=== PATIENT | male | born 1970 | race Caucasian/White ===

== ENCOUNTER 2025-04-28 02:56 | Day surgery (SDC) | payer BC, SELFPAY ==
--- OUTSIDE RECORDS SUMMARY | 2025-04-28 02:59 | XMS_ITS | Encounter Summary ---
Author Organization [facility] Address [address] [place] [address] Care Team Providers Care Lugger Name Role Phone Unavailable Primary Care Provider Unavailabl e Encounter Details Date Type Department Care Team (Late st Contact Info) Description 05/22/2006 Outpatient Historical [facility] Internal Medicine [facility] [address] [place] [address] [address] [place] [address] [place] [address] 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
--- OUTSIDE RECORDS SUMMARY | 2025-04-28 02:59 | XMS_ITS | Data Portability ---
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 Name Role Phone EB YEUNG Primary Care Provider EB YEUNG Referring Provider [phone] Assessment Encounter Date Assessment Date Assessment LastModified by Organization Details LastModified Time 08/08/2022 08/08/2022 Continue with meds increase losartan to 75 mg daily Not available 08/24/2022 17:41:11 12/17/2022 12/17/2022 Continue current therapy follow-up in 4 months [email or web address] Not available 12/17/2022 21:54:56 03/10/2023 03/10/2023 Continue current therapy diagnosis have been discussed follow-up with me in 6 months [email or web address] Not available 03/22/2023 17:39:07 Plan of Treatment Reminders Order Date Submit Date Provider Last Modified By Organization Details Last Modified Time Details Appointments None recorded. Lab uric acid, serum or plasma 2022 023 [facility] (Lab), [address] [place], [address], 19:24:21 [facility], [facility] or [facility] [address] [place], [address], 09:07:51 lipid panel, serum 2022 023 [facility] (Lab), [address] [place], [address], 3 19:24:16 CMP, serum or plasma 2022 023 [facility] (Lab), [address] [place], [address], 3 19:24:27 CBC w/ auto diff 2022 023 [facility] (Lab), [address] [place], [address], 3 18:14:59 Referral None recorded. Procedures None recorded. Surgeries None recorded. Imaging None recorded. Medication Orders losartan 25 mg tablet 2022 023 [email or web address] Not available 3 16:52:30 losartan 50 mg tablet 2022 023 [email or web address] Not available 3 17:16:25 atorvastati n 20 mg tablet 2022 023 [email or web address] Not available 3 12:07:13 allopurinol 300 mg tablet 2022 023 [email or web address] Not available 3 17:16:25 amlodipine 5 mg tablet 2022 023 [email or web address] Not available 3 17:16:25 losartan 25 mg tablet 2022 023 [email or web address] [id number], [address], [place], [place], [id number], 3 14:16:18 losartan 50 mg tablet 2022 023 [email or web address] [id number], [address], [place], [place], [id number], 3 14:16:18 Patient TargetsNo targets recorded. Patient InstructionsNo instructions recorded. Reason for Referral None Reported. Results Created Date Observation Date Name Description Value Unit Range Abnormal Flag Note LastModifiedBy Organization Detail LastModifiedTime 05/12/20 22 05/12/2022 SARS- COV-2 RNA(C OVID1 9),RT -PCR sars-cov-2 RNA(covid19) ,RT-PCR negati ve This test has been autho rized by the FDA under an Emerg ency Use Autho rizat ion (EUA) for use by autho rized labor atori es. Negat saúl resul ts do not precl ude SARS- CoV-2 and shoul d not be used as the sole basis for treat ment or other patie nt manag ement decis ions. Test resul ts shoul d be corre lated with the clini abdirashid histo ry, epide miolo gical data, and other data avail able to the clini aminah evalu ating the patie nt. [place] w the Fact Sheet s for healt h care provi ders and patie nts at the [facility] william: https ://ww [employer].fda .gov/ media /1363 12/do wnloa d https ://ww w.fda .gov/ media /1363 13/do wnloa d https ://[employer].fda .gov/ media /1421 92/do wnloa d https ://[employer].fda .gov/ media /1421 91/do wnloa d Metho dolog y: Real- Time RT-PC R Not Available [facility] (Lab) [address] [place], [address], 05/12/2022 13:32:11 05/14/20 22 05/14/2022 BASIC METAB OLIC PANEL sodium 139 mmol/ L 137-14 5 Not Available [facility] (Lab) [address] [place], [address], 05/14/2022 07:47:38 05/14/20 22 05/14/2022 BASIC METAB OLIC PANEL potassium 3.8 mmol/ L 3.5-5. 1 Not Available [facility] (Lab) [address] [place], [address], 05/14/2022 07:47:38 05/14/20 22 05/14/2022 BASIC METAB OLIC PANEL chloride 104 mmol/ L 98-107 Not Available [facility] (Lab) [address] [place], [address], 05/14/2022 07:47:38 05/14/20 22 05/14/2022 BASIC METAB OLIC PANEL carbon dioxide 27 mmol/ L 22-30 Not Available [facility] (Lab) [address] [place], [address], 05/14/2022 07:47:38 05/14/20 22 05/14/2022 BASIC METAB OLIC PANEL anion gap 11.8 mmol/ L 14-22 low Not Available [facility] (Lab) [address] [place] [address] [place], [address], 05/14/2022 07:47:38 05/14/20 22 05/14/2022 BASIC METAB OLIC PANEL glucose 96 mg/dL 70-99 Not Available [facility] (Lab) [address] [place], [address], 05/14/2022 07:47:38 05/14/20 22 05/14/2022 BASIC METAB OLIC PANEL BUN 18 mg/dL 8-19 Not Available [facility] (Lab) [address] [place] [address] [place], [address], 05/14/2022 07:47:38 05/14/20 22 05/14/2022 BASIC METAB OLIC PANEL creatinine 0.99 mg/dL 0.66-1 .25 Not Available [facility] (Lab) [address] [place] [address] [place], [address], 05/14/2022 07:47:38 05/14/20 22 05/14/2022 BASIC METAB OLIC PANEL GFR >60 Refer ence Range : [place] ge GFR Healt hy Adult : >60 mL/mi n/1.7 3 m2 Chron ic Kidne y Disea se: 15-60 mL/mi n/1.7 3 m2 Avril Peoples re: <15/m L/min /1.73 m2 www.n iddk. nih.g ov The MDRD study equat ion has not been valid ated in child michelle <18 years of age; pregn ant women ; the elder ly >85 years of age; or in some racia l or ethni c subgr oups, such as Hispa nics. Outsi de the valid ated robyn eters , estim ated GFR is less accur ate, requi ring clini abdirashid judgm ent on a case- by-ca se basis . Clini abdirashid inter preta tion for other races and ages must be made by the clini aminah. The MDRD study equat ion has not been valid ated for the evalu ation of serum creat inine relat ed to nutri lev l statu s or medic ation usage . For perso ns <18 years of age, a pedia tric GFR calcu lator is avail able on the [facility] websi te: https ://mitzi samaniego.o rg/pr ofess ional s/kdo qi/gf r_cal culat or Not Available [facility] (Lab) [address] [place], [address], 05/14/2022 07:47:38 05/14/20 22 05/14/2022 BASIC METAB OLIC PANEL calcium 8.2 mg/dL 8.4-10 .2 low Not Available [facility] (Lab) [address] [place], [address], 05/14/2022 07:47:38 05/14/20 22 05/14/2022 CBC W/O DIFFE RENTI AL white blood cells 10.9 x10'3 /uL 4.2-10 .8 high Not Available [facility] (Lab) [address] [place], [address], 05/14/2022 07:41:32 05/14/20 22 05/14/2022 CBC W/O DIFFE RENTI AL red blood cells 3.48 x10'6 /uL 4.10-5 .80 low Not Available [facility] (Lab) [address] [place], [address], 05/14/2022 07:41:32 05/14/20 22 05/14/2022 CBC W/O DIFFE RENTI AL hemoglobin 11.3 g/dL 13.2-1 7.0 low Not Available [facility] (Lab) [address] [place], [address], 05/14/2022 07:41:32 05/14/20 22 05/14/2022 CBC W/O DIFFE RENTI AL hematocrit 33.2 % 39.3-5 0.0 low Not Available [facility] (Lab) [address] [place], [address], 05/14/2022 07:41:32 05/14/20 22 05/14/2022 CBC W/O DIFFE RENTI AL mean red cell volume 95.4 fL 80.0-9 7.0 Not Available [facility] (Lab) [address] [place], [address], 05/14/2022 07:41:32 05/14/20 22 05/14/2022 CBC W/O DIFFE RENTI AL mean red cell hemoglobin 32.5 pg 27.0-3 3.0 Not Available [facility] (Lab) [address] [place], [address], 05/14/2022 07:41:32 05/14/20 22 05/14/2022 CBC W/O DIFFE RENTI AL mean RBC HGB concentratio n 34.0 g/dL 31.0-3 6.0 Not Available [facility] (Lab) [address] [place], [address], 05/14/2022 07:41:32 05/14/20 22 05/14/2022 CBC W/O DIFFE RENTI AL red cell distribution width 12.3 % 11.8-1 5.5 Not Available [facility] (Lab) [address] [place], [address], 05/14/2022 07:41:32 05/14/20 22 05/14/2022 CBC W/O DIFFE RENTI AL platelets 257 x10'3 /uL 150-40 0 Not Available [facility] (Lab) [address] [place], [address], 05/14/2022 07:41:32 05/14/20 22 05/14/2022 CBC W/O DIFFE RENTI AL mean platelet volume 10.2 fL 9.0-12 .4 Not Available [facility] (Lab) [address] [place], [address], 05/14/2022 07:41:32 03/10/20 23 03/10/2023 CBC/C OMPLE TE BLD COUNT W/DIF F white blood cells 9.3 x10'3 /uL 4.2-10 .8 Not Available [facility] (Lab) [address] [place], [address], 03/10/2023 18:14:59 03/10/2003/10/2023 CBC/C OMPLE TE BLD COUNT W/DIF F red blood cells 4.66 x10'6 /uL 4.10-5 .80 Not Available [facility] (Lab) [address] [place], [address], 03/10/2023 18:14:59 03/10/20 23 03/10/2023 CBC/C OMPLE TE BLD COUNT W/DIF F hemoglobin 15.4 g/dL 13.2-1 7.0 Not Available [facility] (Lab) [address] [place], [address], 03/10/2023 18:14:59 03/10/20 23 03/10/2023 CBC/C OMPLE TE BLD COUNT W/DIF F hematocrit 44.1 % 39.3-5 0.0 Not Available [facility] (Lab) [address] [place], [address], 03/10/2023 18:14:59 03/10/2003/10/2023 CBC/C OMPLE TE BLD COUNT W/DIF F mean red cell volume 94.6 fL 80.0-9 7.0 Not Available [facility] (Lab) [address] [place], [address], 03/10/2023 18:14:59 03/10/2003/10/2023 CBC/C OMPLE TE BLD COUNT W/DIF F mean red cell hemoglobin 33.0 pg 27.0-3 3.0 Not Available [facility] (Lab) [address] [place], [address], 03/10/2023 18:14:59 03/10/2003/10/2023 CBC/C OMPLE TE BLD COUNT W/DIF F mean RBC HGB concentratio n 34.9 g/dL 31.0-3 6.0 Not Available [facility] (Lab) [address] [place], [address], 03/10/2023 18:14:59 03/10/2003/10/2023 CBC/C OMPLE TE BLD COUNT W/DIF F red cell distribution width 12.4 % 11.8-1 5.5 Not Available [facility] (Lab) [address] [place], [address], 03/10/2023 18:14:59 03/10/2003/10/2023 CBC/C OMPLE TE BLD COUNT W/DIF F platelets 332 x10'3 /uL 150-40 0 Not Available [facility] (Lab) [address] [place], [address], 03/10/2023 18:14:59 03/10/2003/10/2023 CBC/C OMPLE TE BLD COUNT W/DIF F mean platelet volume 10.3 fL 9.0-12 .4 Not Available [facility] (Lab) [address] [place], [address], 03/10/2023 18:14:59 03/10/2003/10/2023 CBC/C OMPLE TE BLD COUNT W/DIF F neutrophils 79.7 % 39.0-7 2.0 high Not Available [facility] (Lab) [address] [place], [address], 03/10/2023 18:14:59 03/10/2003/10/2023 CBC/C OMPLE TE BLD COUNT W/DIF F lymphocytes 12.3 % 16.0-4 7.0 low Not Available [facility] (Lab) [address] [place], [address], 03/10/2023 18:14:59 03/10/2003/10/2023 CBC/C OMPLE TE BLD COUNT W/DIF F monocytes 5.9 % 5.0-12 .0 Not Available [facility] (Lab) [address] [place], [address], 03/10/2023 18:14:59 03/10/2003/10/2023 CBC/C OMPLE TE BLD COUNT W/DIF F eosinophils 1.5 % 1.0-7. 0 Not Available [facility] (Lab) [address] [place], [address], 03/10/2023 18:14:59 03/10/2003/10/2023 CBC/C OMPLE TE BLD COUNT W/DIF F basophils 0.3 % 0.0-2. 0 Not Available [facility] (Lab) [address] [place], [address], 03/10/2023 18:14:59 03/10/2003/10/2023 CBC/C OMPLE TE BLD COUNT W/DIF F immature granulocytes 0.3 % 0.00-0 .50 Not Available [facility] (Lab) [address] [place], [address], 03/10/2023 18:14:59 03/10/2003/10/2023 CBC/C OMPLE TE BLD COUNT W/DIF F neutrophils, absolute count 7.41 x10'3 /uL 1.5-8. 0 Not Available [facility] (Lab) [address] [place], [address], 03/10/2023 18:14:59 03/10/2003/10/2023 CBC/C OMPLE TE BLD COUNT W/DIF F lymphocytes, absolute count 1.14 x10'3 /uL 1.07-3 .43 Not Available [facility] (Lab) [address] [place], [address], 03/10/2023 18:14:59 03/10/2003/10/2023 CBC/C OMPLE TE BLD COUNT W/DIF F monocytes, absolute count 0.55 x10'3 /uL 0.29-0 .99 Not Available [facility] (Lab) [address] [place], [address], 03/10/2023 18:14:59 03/10/2003/10/2023 CBC/C OMPLE TE BLD COUNT W/DIF F eosinophils, absolute count 0.14 x10'3 /uL 0.02-0 .53 Not Available [facility] (Lab) [address] [place], [address], 03/10/2023 18:14:59 03/10/2003/10/2023 CBC/C OMPLE TE BLD COUNT W/DIF F basophils, absolute count 0.03 x10'3 /uL 0.01-0 .08 Not Available [facility] (Lab) [address] [place], [address], 03/10/2023 18:14:59 03/10/2003/10/2023 CBC/C OMPLE TE BLD COUNT W/DIF F immature granulocytes ,absolute 0.03 x10'3 /uL 0.00-0 .05 Not Available [facility] (Lab) [address] [place], [address], 03/10/2023 18:14:59 03/10/2003/10/2023 CBC/C OMPLE TE BLD COUNT W/DIF F nucleated red blood cells 0.0 % -0 Not Available [facility] (Lab) [address] [place], [address], 03/10/2023 18:14:59 03/10/2003/10/2023 CBC/C OMPLE TE BLD COUNT W/DIF F NRBC# 0.00 x10'3 /uL Not Available [facility] (Lab) [address] [place], [address], 03/10/2023 18:14:59 03/10/2003/10/2023 LIPID PANEL cholesterol 232 mg/dL 140-19 9 high NIH AMANDA NSUS RECOM MENDA TION FOR JESUS STERO L: ADULT CHILD LOW RISK: <200 <170 BORDE RLINE : <200- 239 ----- HIGH RISK: >240 >200 Not Available [facility] (Lab) [address] [place], [address], 03/10/2023 19:24:16 03/10/2003/10/2023 LIPID PANEL triglyceride s 286 mg/dL 0-150 high NIH AMANDA NSUS REPOR T RECOM MENDA TION FOR TRIGL YCERI SUDHAKAR: ADULT CHILD LOW RISK: <150 ----- BODER LINE: 150-1 99 ----- HIGH RISK: >200 ----- Not Available [facility] (Lab) [address] [place], [address], 03/10/2023 19:24:16 10/03/20 23 03/10/2023 LIPID PANEL HDL cholesterol 87 mg/dL 40- Not Available [facility] (Lab) [address] [place], [address], 03/10/2023 19:24:16 03/10/20 23 03/10/2023 LIPID PANEL LDL cholesterol, calculated 88 mg/dL 0-130 NIH AMANDA NSUS REPOR T RECOM MENDA TIONS FOR LDL: ADULT CHILD LOW RISK <130 <110 (OPTI MAL LDL) <100 ----- BORDE RLINE : 130-1 59 ----- HIGH RISK: >160 >130 A TRIGL YCERI DE RESUL T >400 INVAL IDATE S THE CALCU LATIO N FOR LDL FRACT IONAT ION - THE LDL RESUL T WILL NOT BE REPOR ESTHER. Not Available [facility] (Lab) [address] [place], [address], 03/10/2023 19:24:16 03/10/2003/10/2023 URIC ACID SERUM uric acid 4.7 mg/dL 3.5-8. 5 Not Available [facility] (Lab) [address] [place], [address], 03/10/2023 19:24:21 03/10/20 23 03/10/2023 COMPR EHENS SAÚL METAB OLIC PANEL sodium 138 mmol/ L 137-14 5 Not Available [facility] (Lab) [address] [place], [address], 03/10/2023 19:24:27 03/10/20 23 03/10/2023 COMPR EHENS SAÚL METAB OLIC PANEL potassium 4.6 mmol/ L 3.5-5. 1 Not Available [facility] (Lab) [address] [place], [address], 03/10/2023 19:24:27 03/10/20 23 03/10/2023 COMPR EHENS SAÚL METAB OLIC PANEL chloride 98 mmol/ L 98-107 Not Available [facility] (Lab) [address] [place], [address], 03/10/2023 19:24:27 03/10/20 23 03/10/2023 COMPR EHENS SAÚL METAB OLIC PANEL carbon dioxide 30 mmol/ L 22-30 Not Available [facility] (Lab) [address] [place], [address], 03/10/2023 19:24:27 03/10/20 23 03/10/2023 COMPR EHENS SAÚL METAB OLIC PANEL anion gap 14.6 mmol/ L 14-22 Not Available [facility] (Lab) [address] [place], [address], 03/10/2023 19:24:27 03/10/20 23 03/10/2023 COMPR EHENS SAÚL METAB OLIC PANEL glucose 86 mg/dL 70-99 Not Available [facility] (Lab) [address] [place], [address], 03/10/2023 19:24:27 03/10/20 23 03/10/2023 COMPR EHENS SAÚL METAB OLIC PANEL BUN 20 mg/dL 8-19 high Not Available [facility] (Lab) [address] [place], [address], 03/10/2023 19:24:27 03/10/20 23 03/10/2023 COMPR EHENS SAÚL METAB OLIC PANEL creatinine 1.13 mg/dL 0.66-1 .25 Not Available [facility] (Lab) [address] [place], [address], 03/10/2023 19:24:27 03/10/20 23 03/10/2023 COMPR EHENS SAÚL METAB OLIC PANEL GFR >60 Refer ence Range : [place] ge GFR Healt hy Adult : >60 mL/mi n/1.7 3 m2 Chron ic Kidne y Disea se: 15-60 mL/mi n/1.7 3 m2 Kidne y Failu re: <15/m L/min /1.73 m2 www.n iddk. nih.g ov The MDRD study equat ion has not been valid ated in child michelle <18 years of age; pregn ant women ; the elder ly >85 years of age; or in some racia l or ethni c subgr oups, such as Hisjoni nics. Outsi de the valid ated robyn eters , estim ated GFR is less accur ate, requi ring clini abdirashid judgm ent on a case- by-ca se basis . Clini abdirashid inter preta tion for other races and ages must be made by the clini aminah. The MDRD study equat ion has not been valid ated for the evalu ation of serum creat inine relat ed to nutri lev l statu s or medic ation usage . For perso ns <18 years of age, a pedia tric GFR calcu lator is avail able on the [facility] websi te: https ://mitzi w.linda samaniego.o rg/pr ofess ional s/kdo qi/gf r_cal culat or Not Available [facility] (Lab) [address] [place], [address], 03/10/2023 19:24:27 03/10/2003/10/2023 COMPR EHENS SAÚL METAB OLIC PANEL alkaline phosphatase 58 U/L 38-126 Not Available [facility] (Lab) [address] [place], [address], 03/10/2023 19:24:27 03/10/20 23 03/10/2023 COMPR EHENS SAÚL METAB OLIC PANEL alanine aminotransfe rase 44 U/L 0-50 Not Available [facility] (Lab) [address] [place], [address], 03/10/2023 19:24:27 03/10/20 23 03/10/2023 COMPR EHENS SAÚL METAB OLIC PANEL aspartate aminotransfe rase 53 U/L 15-46 high Not Available [facility] (Lab) [address] [place], [address], 03/10/2023 19:24:27 03/10/20 23 03/10/2023 COMPR EHENS SAÚL METAB OLIC PANEL bilirubin, total 0.70 mg/dL 0.20-1 .30 Not Available [facility] (Lab) [address] [place], [address], 03/10/2023 19:24:27 03/10/20 23 03/10/2023 COMPR EHENS SAÚL METAB OLIC PANEL calcium 10.3 mg/dL 8.4-10 .2 high Not Available [facility] (Lab) [address] [place], [address], 03/10/2023 19:24:27 03/10/20 23 03/10/2023 COMPR EHENS SALÚ METAB OLIC PANEL total protein 7.9 g/dL 6.3-8. 2 Not Available [facility] (Lab) [address] [place], [address], 03/10/2023 19:24:27 03/10/20 23 03/10/2023 COMPR EHENS SAÚL METAB OLIC PANEL albumin 4.9 g/dL 3.4-5. 0 Not Available [facility] (Lab) [address] [place], [address], 03/10/2023 19:24:27 03/10/20 23 03/10/2023 COMPR EHENS SAÚL METAB OLIC PANEL globulin 3.0 g/dL 2.6-4. 2 Not Available [facility] (Lab) [address] [place], [address], 03/10/2023 19:24:27 03/10/20 23 03/10/2023 COMPR EHENS SAÚL METAB OLIC PANEL A/G ratio 1.6 ratio 1.0-2. 0 Not Available [facility] (Lab) [address] [place], [address], 03/10/2023 19:24:27 03/10/20 23 03/11/2023 PSA SCREE N PSA medicare screen 2.09 NG/mL 0.00-4 .00 Not Available [facility] (Lab) [address], [place], [address], 03/11/2023 19:37:50 06/12/19 23 XR, hip + pelvi s, unila teral No observ ation record ed. [id number] [address] [facility], [place], [address], 08/06/2022 05:05:04 Result Notes None recorded. Problems Name Problem SNOMED Code Status Onset Date Resolution Date Notes Provider Name and Address Organization Details Recorded Time Carpal tunnel syndrome 20752833 Active Not Available [facility] 3 00:25:39 Liver function tests outside reference range 653456186 Active 2018 Not Available [facility] 3 00:25:39 Hyperurice roni 76961795 Active 2018 Not Available [facility] 3 00:25:39 Dyslipidem ia 768630396 Active 2018 Not Available [facility] 3 00:25:39 Essential hypertensi on 71591601 Active 2018 Not Available [facility] 3 00:25:39 Anxiety 49016492 Active 2019 Not Available [facility] 3 00:25:39 Osteoarthr itis of right knee joint 1625150130295 00 Active 2021 Not Available [facility] 3 00:25:39 Onychomyco sis of toenails 372115606 Active 2021 Not Available [facility] 3 00:25:39 Fatigue 06786930 Active 2021 Not Available [facility] 3 00:25:39 Erectile dysfunctio n 802474997 Active 2021 Not Available [facility] 3 00:25:39 Osteoarthr itis 585003312 Active 2021 Not Available [facility] 3 00:25:39 Pain in throat 377170036 Active 2021 Not Available [facility] 3 00:25:39 Hyperlipid emia 45781686 Active 2022 Not Available [facility] 3 00:25:39 Herpes zoster 5183025 Active 2022 Mireya Moore RN null, [place] [employer] [facility] [employer] [facility] 3 12:24:30 Herpes simplex 70155840 Active 2022 Mireya Moore RN null, [employer] [facility] [employer] [facility] 3 12:25:43 Liver enzymes level above reference range 389230348 Active 2023 Shannon tracy MD [address], [place], [address] , [employer] [facility] Huan [employer]g 4 14:22:21 Moderate recurrent major depression 13551471 Active 2023 Shannon tracy MD [address], [place], [address] , [employer] [facility] [employer] [facility] 4 14:23:24 Notes:Medical History: Anxie ty Rhinitis Obesity with very severe OSAHS, AHI = 90, 10/01/21, on autoCPAP c/o IVRC Hypertension Hyperlipidemia Hyperuricemia Left hip OA 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 Procedures Surgical History Date Name Laterality Status Provider Name and Address Organization Details Recorded Time 2 total replacement of hip completed YUMIKO Tate [employer] [facility] [employer] [facility] 08/08/2022 12:30:15 Imaging Results None recorded. Procedure Notes None recorded. Medical Equipment None Reported. Allergies Allergen ID Allergen Name Allergen Category Reaction Reaction Severity Criticality Documentation Date Start Date Code Code System Note Provider Name and Address Organization Details Recorded Time 8251 tramadol medicatio n edema Not available Not available 08/06/2022 74416 RxNorm tongu e and lips swell ed up Not Available [facility] 3 05:04:23 8252 Product containin g penicilli n (product) medicatio n Not available Not available Not available 08/06/2022 38475 8001 SNOMED Not Available [facility] 3 05:04:23 Medications Name Sig Start Date Stop Date Status Note LastModified by Organization Details LastModified Time losartan 50 mg tablet TAKE ONE TABLET BY MOUTH DAILY 2022 active Not Available Not Available Not Avai lable celecoxib 200 mg capsule TAKE 1 CAPSULE BY MOUTH EVERY DAY 06/12 completed Not Available Not Available Not Available prednison e 10 mg tablet 30mg x 2days 20mg x 2days 10mg x 2days 02/20 completed Not Available Not Available Not Available atorvasta tin 20 mg tablet TAKE 1 TABLET BY MOUTH DAILY 2022 active Not Available Not Available Not Avai lable atorvasta tin 10 mg tablet TAKE ONE TABLET BY MOUTH DAILY 08/16 completed Not Available Not Available Not Available azithromy lizzie 250 mg tablet TK 2 TS PO ON DAY 1, THEN TK 1 T PO D FOR 4 DAYS 02/20 completed Not Available Not Available Not Available tizanidin e 4 mg tablet Take 1 tablet every day by oral route at bedtime. active Not Available Not Available No t Available valacyclo vir 1 gram tablet TK 1 T PO BID FOR 7 DAYS 11/28 completed Not Available Not Available Not Available meloxicam 15 mg tablet TAKE 1 TABLET BY MOUTH EVERY DAY 11/21 completed Not Available Not Available Not Available prednison e 20 mg tablet Take 2 tablets every day by oral route for 5 days. active Not Available Not Available No t Available amlodipin e 2.5 mg tablet TAKE 1 TABLET BY MOUTH EVERY DAY active Not Available Not Available No t Available amlodipin e 5 mg tablet TAKE 1 TABLET BY MOUTH EVERY DAY 2022 active Not Available Not Available Not Avai lable valacyclo vir 500 mg tablet TAKE 1 TABLET BY MOUTH TWICE DAILY FOR 7 DAYS active Not Available Not Available No t Available prednison e 10 mg tablets in a dose pack Take 1 tab by mouth, 3 times a day for 3 daysTake 1 tab by mouth 2 times a day for 2 daysTake 1 tab by mouth once a day for 1 day 11/21 completed Not Available Not Available Not Available terbinafi ne HCl 250 mg tablet TAKE 1 TABLET BY MOUTH EVERY DAY 04/16 completed Not Available Not Available Not Available Kenalog 10 mg/mL suspensio n for injection In office injectio n administ ered by the provider 11/21 completed [facility]: [phone] Not Available Not Available Not Available amlodipin e 10 mg tablet TK 1 T PO QD 09/08 completed stopped at visit 09/08/18 changed to Losartan Not Available Not Available Not Available cephalexi n 500 mg capsule TAKE 1 CAPSULE BY MOUTH EVERY 6 HOURS 06/12 completed Not Available Not Available Not Available misoprost ol 200 mcg tablet TAKE 1 TABLET BY MOUTH TWICE DAILY WITH DICLOFEN AC 03/19 completed Not Available Not Available Not Available losartan 25 mg tablet TAKE 1 TABLET BY MOUTH DAILY WITH A 50MG TABLET TO TOTAL 75MG active Not Available Not Available No t Available indometha lizzie 50 mg capsule TK ONE C PO BID 06/04 completed Not Available Not Available Not Available diclofena c sodium 75 mg tablet,de layed release TAKE 1 TABLET BY MOUTH TWICE DAILY active Not Available Not Available No t Available allopurin ol 300 mg tablet TAKE 1 TABLET BY MOUTH EVERY DAY 2022 active Not Available Not Available Not Avai lable telmisart an 20 mg tablet take one tablet by mouth once daily 09/17 completed on backorde r changed to [place] in 20mg qd Not Available Not Available Not Available levofloxa lizzie 500 mg tablet TK 1 T PO QD FOR 7 DAYS 11/12 completed Not Available Not Available Not Available methylpre dnisolone 4 mg tablets in a dose pack Take 1 dose pk by oral route as directed . active Not Available Not Available No t Available oxycodone 5 mg tablet take 1 tab po q 4hr prn pain active Not Available Not Available No t Available olmesarta n 20 mg tablet Take 1 tablet every day by oral route. 11/12 completed Not Available Not Available Not Available bupropion HCl XL 300 mg 24 hr tablet, extended release TAKE ONE TABLET BY MOUTH EVERY MORNING 2022 active Not Available Not Available Not Avai lable Cialis 20 mg tablet take 1 tablet 30 mins before intercou rse 12/17 completed Not Available Not Available Not Available sildenafi l (pulmonar y hypertens ion) 20 mg tablet active Not Available Not Available No t Available Aspir-81 04/25 completed Not Available Not Available Not Available lidocaine (PF) 10 mg/mL (1 %) injection solution In office injectio n administ ered by the provider 02/01 completed [facility]: [id number] [id number] Not Available Not Available Not Available lidocaine (PF) 5 mg/mL (0.5 %) injection solution Take 60 mg by injectio n route. 11/21 completed Not Available Not Available Not Available Eliquis 2.5 mg tablet Take 1 tablet twice a day by oral route. active Not Available Not Available No t Available BinaxNOW COVID-19 Ag Self Test kit TEST DIRECTED TODAY 07/24 completed Not Available Not Available Not Available Vitals Date Recorded Body height Provider Name an d Address Organization Details Last Updated DateTime 06/12/2022 172.72 cm Not Available [facility] 3 04:48:28 Date Recorded Body height Provider Name an d Address Organization Details Last Updated DateTime 07/24/2022 172.72 cm Not Available [facility] 3 04:48:28 Date Recorded Body height Body mass index (BMI) Body weight Body temperature Heart rate Systolic And Diastolic Provider Name and Address Organization Details Last Updated DateTime 3 172.72 cm 36.9 kg/m2 432440. 95 g 97.4 [degF] 92 /min 132/88 mm[Hg] YUMIKO Tate [facility] [employer] [facility] 3 12:31:39 Date Recorded Body height Body mass index (BMI) Body weight Body temperature Heart rate Systolic And Diastolic Provider Name and Address Organization Details Last Updated DateTime 3 172.72 cm 33.8 kg/m2 812430. 51 g 98.1 [degF] 87 /min 130/80 mm[Hg] Anastasia daniel RN [facility] [employer] [facility] 3 15:47:16 Date Recorded Body height Body mass index (BMI) Body weight Body temperature Heart rate Systolic And Diastolic Provider Name and Address Organization Details Last Updated DateTime 3 172.72 cm 31.5 kg/m2 49294.6 2 g 97.2 [degF] 106 /min 126/86 mm[Hg] YUMIKO Tate [place] - [facility] 3 16:21:37 Social History Question Answer Notes LastModified by Organizat ion Details LastModified Time Tobacco Smoking Status Never Smoker Not Available [facility] 08/06/2022 04:32:24 Do You Have An Advance Directive? No MIGRATION.[id number] Information not available 08/06/2022 Do You Wear A Helmet When Biking? Yes MIGRATION.74476 58021 Information not available 08/06/2022 What Is Your Level Of Caffeine Consumption? Moderate MIGRATION.91236 87662 Information not available 08/06/2022 How Much Tobacco Do You Chew? None MIGRATION.94860 59481 Information not available 08/06/2022 In The 14 Days Before Symptom Onset, Have You Had Close Contact With A Laboratory-confi rmed COVID-19 While That Case Was Ill? No MIGRATION.78605 59839 Information not available 08/06/2022 In The 14 Days Before Symptom Onset, Have You Had Close Contact With A Person Who Is Under Investigation For COVID-19 While That Person Was Ill? No MIGRATION.54601 57114 Information not available 08/06/2022 What Type Of Diet Are You Following? REGULAR MIGRATION.34574 36279 Information not available 08/06/2022 Which Illicit Or Recreational Drugs Have You Used? None MIGRATION.59234 52244 Information not available 08/06/2022 What Is The Highest Grade Or Level Of School You Have Completed Or The Highest Degree You Have Received? [id number] MIGRATION.84633 76445 Information not available 08/06/2022 Do You Have An Electrostatic Air Filter? No MIGRATION.40534 55530 Information not available 08/06/2022 Have There Been Any Changes To Your Family Or Social Situation? No MIGRATION.29755 33636 Information not available 08/06/2022 What Is The Fluoride Status Of Your Home? Unknown MIGRATION.12958 94897 Information not available 08/06/2022 Are There Any Guns Present In Your Home? Yes MIGRATION.59234 08761 Information not available 08/06/2022 Do You Have A Humidifier? Yes MIGRATION.96057 34546 Information not available 08/06/2022 Do You Use Insect Repellent Routinely? No MIGRATION.29715 18964 Information not available 08/06/2022 Where Do You Live? [place] MIGRATION.51524 31874 Information not available 08/06/2022 Do You Have A Medical Power Of [employer] Consultant? No MIGRATION.75727 41637 Information not available 08/06/2022 Do You Have Moisture Problems In Your Home? No MIGRATION.35376 21586 Information not available 08/06/2022 What Was The Date Of Your Most Recent Tobacco Screening? 03/10/2023 [id number] Information not available 03/10/2023 Have You Ever Been Counseled For Unhealthy Alcohol Use? No MIGRATION.99368 39669 Information not available 08/06/2022 Do You Have Any Pets? Yes MIGRATION.21616 56182 Information not available 08/06/2022 What Is Your Relationship Status? MIGRATION.19460 29467 Information not available 08/06/2022 Do You Use Your Seat Belt Or Car Seat Routinely? Yes MIGRATION.30119 60517 Information not available 08/06/2022 Do You Have Smoke And Carbon Monoxide Detectors In Your Home? Yes MIGRATION.95518 20112 Information not available 08/06/2022 Are You Passively Exposed To Smoke? No MIGRATION.17460 02354 Information not available 08/06/2022 Are There Any Smokers In Your House? No MIGRATION.21493 66534 Information not available 08/06/2022 How Much Tobacco Do You Smoke? No MIGRATION.12433 90037 Information not available 08/06/2022 What Types Of Sporting Activities Do You Participate In? Hockey MIGRATION.94154 01779 Information not available 08/06/2022 Do You Use Sunscreen Routinely? Yes MIGRATION.28327 91031 Information not available 08/06/2022 Has Tobacco Cessation Counseling Been Provided? No Not Needed-ne neelam Smoked MIGRATION.06949 18441 Information not available 08/06/2022 How Many Years Have You Smoked Tobacco? 0 MIGRATION.46956 07615 Information not available 08/06/2022 Have You Recently Traveled Abroad? No MIGRATION.84811 51760 Information not available 08/06/2022 Do You Have Any Dietary Restrictions? No MIGRATION.96394 05679 Information not available 08/06/2022 Sex: Male Functional Status Question Answer Note LastModified by Organizat ion Details LastModified Time Do you use any illicit or recreational drugs? No MIGRATION.008019 9894 Information not available 08/06/2022 Do you or have you ever used any other forms of tobacco or nicotine? No MIGRATION.918882 8367 Information not available 08/06/2022 What is your level of alcohol consumption? Moderate MIGRATION.987123 9085 Information not available 08/06/2022 Do you or have you ever used smokeless tobacco? Never used smokeless tobacco MIGRATION.556744 5860 Information not available 08/06/2022 What is your occupation? [employer] In[employer] MIGRATION.221559 5023 Information not available 08/06/2022 Do you or have you ever used e-cigarettes or vape? Never used electronic cigarettes MIGRATION.633403 8263 Information not available 08/06/2022 What is your exercise level? Moderate MIGRATION.238081 7855 Information not available 08/06/2022 Mental Status Question Answer Note LastModified by Organizat ion Details LastModified Time Do you feel stressed (tense, restless, nervous, or anxious, or unable to sleep at night)? [id number] MIGRATION.[id number] Information not available 08/06/2022 Family History Relationship Description Onset Age of this Age Resolved Age Notes LastModified by Organization Details LastModified Time Father Malignant neoplasm of stomach 63 MIGRATION.[id number] Not available 08/06/2022 04:41:45 Father Hypertensive disorder MIGRATION.946 [id number] Not available 08/06/2022 04:41:45 Medical History Condition Response NERVE DISEASE N BLINDNESS N RHEUMATIC FEVER N KIDNEY STONES N BLADDER PROBLEMS N MRSA N OTHER # 1 N POLIO N LUNG DISEASE/DISORDER N COPD N RADIATION / CHEMOTHERAPY N Other # 2 N BLOOD DISEASES N EAR OR HEARING PROBLEMS N MUMPS N DEPRESSION (INCLUDING POST ) N BOWEL PROBLEMS N STROKE/TIA N ULCERS N BENIGN PROSTATIC HYPERPLASIA N MEASLES N MYOCARDIAL INFARCTION N OBESITY N GERD/NAUSEA N ANEURYSM N URINARY/BLADDER/KIDNEY PROBLEMS N CORONARY ARTERY DISEASE (CAD) N ADDICTION CONCERNS N Impotence N ENDOMETRIOSIS N USE OF BLOOD THINNERS N SKIN PROBLEMS N GASTROINTESTINAL DISORDER N PERIPHERAL VASCULAR DISEASE N MUSCLE,JOINT OR BONE PROBLEMS N GASTROINTESTINAL BLEEDING N BLOOD CLOTS N ASTHMA N CATARACTS N ERECTILE DYSFUNCTION N VARICOSITIES N GI PROBLEMS N Low Testosterone N INFERTILITY N AIDS/HIV N CHEMOTHERAPY / RADIATION N LIVER DISEASE N MALE HYPOGONADISM N HYPERTENSION Y Deficiency N TOURETTE'S N ANXIETY DISORDER Y BLOOD TRANSFUSION N ANEMIA/BLOOD DISORDER N CHRONIC EAR INFECTIONS N BRONCHITIS N TUBERCULOSIS N GLAUCOMA N FOOT PROBLEM N DIVERTICULITIS N SLEEP APNEA N CHICKENPOX N INFECTIOUS DISEASE N PROSTATE N HEART ARRHYTHMIA N INSOMNIA N HIGH CHOLESTEROL / HYPERLIPIDEMIA Y EYE PROBLEMS N HYPERTHYROIDISM N EDEMA N CHRONIC PAIN SYNDROME N HYPOTHYROIDISM N CAROTID BLOCKAGE N CONSTIPATION N BACK / NECK PROBLEMS N HAVE YOU BEEN HOSPITALIZED OR SEEN IN [facility] ER IN THE PAST YEAR ? N ATHEROSCLEROSIS N BREAST PROBLEMS N DIALYSIS N ECZEMA N OSTEOPOROSIS N ARTHRITIS Y APPENDICITIS N DIABETES, TYPE N BAD TEETH N ENT N HEARTBURN / REFLUX N AUTISM SPECTRUM DISORDER (ASD) N HEPATITIS / LIVER DISEASE N GOUT Y SLEEP DISORDER N ALZHEIMER'S DISEASE N Brain Problems N DEMENTIA N HERPES Y SEIZURES/EPILEPSY N HEADACHES/MIGRAINES N VASCULAR DISEASE N PACEMAKER N Blood Disorder N DIZZINESS N HEART DISEASE/HEART PROBLEMS N KIDNEY DISEASE N MULTIPLE SCLEROSIS N CANCER: SPECIFY N CARDIAC ARRHYTHMIA N ATRIAL FIBRILLATION N Gall Stones N PULMONARY EMBOLISM N AUTOIMMUNE DISEASE N Immunizations Vaccine Type Date Status Note Provider Nam e and Address Organization Details Recorded Time COVID-19 vaccine, vector-nr, rS-Ad26, PF, 0.5 mL 09/13/2020 completed Not Available [facility] 3 00:25:40 COVID-19, mRNA, LNP-S, PF, 100 mcg/0.5mL dose or 50 mcg/0.25mL dose 04/08/2022 completed Not Available [facility] 3 00:25:40 COVID-19, mRNA, LNP-S, PF, 100 mcg/0.5mL dose or 50 mcg/0.25mL dose 03/30/2021 completed Not Available [facility] 3 00:25:40 Past Encounters Encounter ID Performer Location Encounter Start Date Encounter Closed Date Diagnosis/Indication Diagnosis SNOMED-CT Code Diagnosis ICD10 Code Diagnosis IMO Codes Diagnosis Note [id number] Eb Yeung MD [facility] [place] [address] [facility] [address] [place] [address] 11/21/2020 00:00:00 11/25/2020 20:54:49 [id number] Rome Cavazos MD [facility] [place] [address] [facility] [address] [place] [address] 04/25/2021 00:00:00 04/25/2021 15:09:40 [id number] Eb Yeung MD [facility] [place] [address] [place] [id number] 05/22/2021 00:00:00 06/08/2021 15:42:52 [id number] Rome Cavazos MD [facility] [place] [address] [facility] [address] [place] [address] 05/30/2021 00:00:00 05/30/2021 15:03:18 [id number] Rome Cavazos MD [facility] [place] [address] [place] [address] 10/24/2021 00:00:00 10/24/2021 13:33:20 [id number] Delgado Valdivia MD [facility] [address] [address] 11/21/2021 00:00:00 11/21/2021 14:43:33 [id number] Eb Yeung MD [facility] [address] [place] [id number] 11/27/2021 00:00:00 11/27/2021 21:00:35 [id number] Steve Mancilla MD [facility] [address] 12/12/2021 00:00:00 12/12/2021 15:51:20 [id number] [facility] [address] [place] [id number] 02/27/2022 00:00:00 02/28/2022 23:42:37 [id number] Steve Mancilla MD [facility] [address] [address] 03/13/2022 00:00:00 03/15/2022 13:41:41 [id number] Eb Yeung MD [facility] [address] [place] [address] 03/19/2022 00:00:00 03/23/2022 22:05:33 [id number] Eb Yeung MD [facility] Internal Med [place] [address] 04/16/2022 00:00:00 04/16/2022 21:15:52 [id number] Steve Mancilla MD [facility] [address] [place] [address] 9 05/29/2022 00:00:00 05/29/2022 16:47:23 [id number] Steve Mancilla MD S_[place] [address] 06/12/2022 00:00:00 06/12/2022 11:37:14 [id number] Steve Mancilla MD [facility]_[place] [address] 07/24/2022 00:00:00 07/24/2022 14:14:57 [id number] Eb Yeung MD [facility] Internal Med [place] [address] 1 08/08/2022 12:12:37 08/08/2022 13:12:26 Anxiety 61202074 F41.9 Dyslipidemia 625664964 E 78.5 Essential hypertension 54438753 I10 [id number] Eb Yeung MD [facility] Internal [facility] [place] [address] 1 12/17/2022 15:37:32 12/17/2022 16:49:36 Renewal of prescription 925275739 Z76.0 Essential hypertension 56675540 I10 Hyperlipidemia 10368975 E78.5 Anxiety 50735603 F41.9 [id number] Eb Yeung MD [facility] [place] [address] 1 03/10/2023 16:12:00 03/10/2023 16:40:30 Dyslipidemia 809105071 E78.5 Osteoarthritis 557895683 M16.12 Screening for malignant neoplasm of prostate 123518991 Z12.5 Essential hypertension 15539227 I10 Anxiety 40794771 F41.9 Hyperuricemia 82115358 E 79.0 Health Concerns Section Related Observation LastModified by Organization Detai ls LastModified Time None Recorded Concern Status LastModified by Organization Details LastModified Time None Recorded Advance Directives Directive N: Payers Insurance Date Sequence Insurance Name Policy Number Policy Strauss Covered Member ID Strauss Member ID Guarantor Name 10/25/2024 1 [facility] [id number] Tyler Hannah [id number] Tyler Chandana [place] Notes Date Note Type Note Provider Name and Address Organization Details Recorded Time 3 text/html Hypertension no headache no dizzinessAnxiety doing well on current medicinesDyslipidemia tries to follow low-fat diet Eb Yeung MD [address] [facility], [place], [address], [facility] [employer] [id number] 08/24/2022 17:41:31 3 text/html hypertension doing better hyperlipidemia taking atorvastatin gout allopurinol no side effects Eb Yeung MD [address] [employer], [place], [address], [facility] [employer] [facility] [employer] [email or web address] 12/17/2022 21:55:13 3 text/html hypertension doing better hyperlipidemia taking atorvastatin gout allopurinol no side effects anxiety stable Eb Yeung MD [address] [employer], [place], [address], [facility] [employer] [facility] [employer] [email or web address] 03/22/2023 17:40:07
--- OUTSIDE RECORDS SUMMARY | 2025-04-28 02:59 | XMS_ITS | Data Portability ---
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 Stop losartan. Start losartan hydrochlorothiazide 100/25 1 tablet daily. Dyslipidemia atorvastatin gout allopurinol and dietary strategies. Anxiety continue current therapy. Follow up in 1 month. [email or web address] Not available 03/06/2024 21:45:23 04/05/2024 04/05/2024 blood pressure i s controlled healthy lifestyle care instructions for his weight fish oil for his triglycerides abstinence of alcohol for his triglycerides and high cholesterol. Dermatology referral for skin lesion his other medical problems and their management have been discussed he will follow up with me in 4 months we will get his last Cologuard results to see if he is due Not available 04/05/2024 21:48:20 09/23/2024 09/23/2024 Orthopedics to fredy ybarra at his knee blood pressure is controlled blood work for biochemical management of disease processes medications needs to watch the gout cut down on drinking continue with his atorvastatin for his dyslipidemia anxiety he says he is doing fine he will follow up with me in 4 months he has been using triple antibiotic ointment on his abrasion without any problems he can continue that until healed Not available 09/23/2024 20:58:50 10/19/2024 10/19/2024 He will see me wilfredo narvaez in 3 months for his medical problems follow guidance of the left knee from Orthopedics [email or web address] Not available 11/01/2024 23:18:39 01/18/2025 01/18/2025 We will continue current therapy blood work has been ordered declines HIV testing 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 he will follow up with me in 6 months CBC CMP lipid 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 [email or web address] Not available 01/22/2025 20:10:04 Plan of Treatment Reminders Order Date Submit Date Provider Last Modified By Organization Details Last Modified Time Details Appointments ANY 15 2025 01:00P M Eb Yeung MD Not available Not available Not available Lab PSA, total, serum or plasma 2024 025 HARMONY Cecily, [address], [place], [address], 01/19/2025 08:30:01 noninvasi ve colorecta l cancer DNA + occult blood screening , QL, stool 2024 025 HARMONY [facility], [address], [address], [place], [address], 02/02/2025 06:33:10 CBC w/ auto diff 2024 025 [facility], [address], [address], [place], [address], 01/19/2025 08:29:59 lipid panel, serum 2024 025 HARMONY Mary, [address], [address], [place], [address], 01/19/2025 08:29:57 CMP, serum or plasma 2024 025 HARMONY Carolanncox branson, [address], [address], [place], [address], 01/19/2025 08:29:58 uric acid, serum or plasma [facility] [address], [address], [place], [address], 09/28/2024 06:45:46 lipid panel, serum 2024 025 IRINA Hernandez, [address], [address], [place], [address], 09/28/2024 06:45:43 CBC w/ auto diff 2024 025 IRINA Hernandez, [address], [address], [place], [address], 09/28/2024 06:45:47 CMP, serum or plasma 2024 025 IRINA Hernandez, [address], [address], [place], [address], 09/28/2024 06:45:44 uric acid, serum or plasma 2023 024 IRINA Hernandez, [address], [address], [place], [address], 03/15/2024 10:19:23 lipid panel, serum 2023 024 IRINA Hernandez, [address], [address], [place], [address], 03/15/2024 10:19:20 CMP, serum or plasma 2023 024 IRINA Hernandez, [address], [address], [place], [address], 03/15/2024 10:19:21 CBC w/ auto diff 2023 024 IRINA Hernandez, [address], [address], [place], [address], 03/15/2024 10:19:24 Referral orthopedi c surgeon referral 2024 025 IRINA Mancilla, [address], [address], [place], [address], 10/13/2024 16:11:55 dermatolo gist referral 2023 [facility], [address], [place], [address], 01/18/2025 15:41:42 Procedures None recorded. Surgeries None recorded. Imaging electroca rdiogram 2023 024 [id number] In-Office Order, Internal Use Only DO Not Attach Compendium DO Not Attach Compendium, Do Not Delete/merge, [id number] 03/01/2024 18:18:32 Medication Orders valacyclo vir 500 mg tablet 2024 025 [email or web address] [id number], [address] , [place], [place], [id number], 01/18/2025 16:20:44 losartan 100 mg-hydroc hlorothia zide 25 mg tablet 2023 024 [email or web address] [facility][id number], [address] , [place], [place], [id number], 03/01/2024 18:18:32 Patient TargetsNo targets recorded. Patient Instructions Encounter Date Encounter Id Patient Instructions Last Modified By Organization Details Last Modified Time 04/05/2024 [id number] A healthy lifestyle: care instructions [email or web address] Not available 04/05/2024 15:31:11 09/23/2024 [id number] A healthy lifestyle: care instructions Not available 09/23/2024 11:30:33 10/19/2024 [id number] A healthy lifestyle: care instructions [email or web address] Not available 10/19/2024 17:28:56 01/18/2025 [id number] A healthy lifestyle: care instructions [email or web address] Not available 01/18/2025 16:20:44 Reason for Referral Combination Technician Referral for S kin lesion Referring Physician: Eb Yeung, Internal Medicine, Encounter Date: 04/05/2024 Orthopedic Surgeon Referral for Pain of left knee joint Referring Physician: Eb Yeung, Internal Medicine, Encounter Date: 09/23/2024 Results Created Date Observation Date Name Description Value Unit Range Abnormal Flag Note LastModifiedBy Organization Detail LastModifiedTime 03/14/2003/15/2024 LIPID PANEL cholesterol, total 221 mg/dL 100-19 9 above high normal Not Available [facility] ([facility]) [address] [place], [address], 03/15/2024 10:19:20 03/14/2003/15/2024 LIPID PANEL triglyceride s 555 mg/dL 0-149 alert high Not Available [facility] ([facility]) [address] [place], [address], 03/15/2024 10:19:20 03/14/20 24 03/15/2024 LIPID PANEL HDL cholesterol 55 mg/dL >39 Not Available [facility] ([facility]) [address] [place], [address], 03/15/2024 10:19:20 03/14/20 24 03/15/2024 LIPID PANEL VLDL cholesterol abdirashid 88 mg/dL 5-40 above high normal Not Available [facility] ([facility]) [address] [place], [address], 03/15/2024 10:19:20 03/14/20 24 03/15/2024 LIPID PANEL LDL chol calc ([facility]) 78 mg/dL 0-99 Not Available [facility] ([facility]) [address] [place], [address], 03/15/2024 10:19:20 03/14/20 24 03/15/2024 COMP. METAB OLIC PANEL (14) glucose 92 mg/dL 70-99 Not Available [facility] ([facility]) [address] [place], [address], 03/15/2024 10:19:21 03/14/20 24 03/15/2024 COMP. METAB OLIC PANEL (14) BUN 21 mg/dL 6-24 Not Available [facility] ([facility]) [address] [place], [address], 03/15/2024 10:19:21 03/14/20 24 03/15/2024 COMP. METAB OLIC PANEL (14) creatinine 0.88 mg/dL 0.76-1 .27 Not Available [facility] ([facility]) [address], [place], [address], 03/15/2024 10:19:21 03/14/20 24 03/15/2024 COMP. METAB OLIC PANEL (14) eGFR 104 mL/mi n/1.7 3 >59 Not Available [facility] ([facility]) [address], [place], [address], 03/15/2024 10:19:21 03/14/20 24 03/15/2024 COMP. METAB OLIC PANEL (14) BUN/creatini ne ratio 24 9-20 above high normal Not Available [facility] ([facility]) [address], [place], [address], 03/15/2024 10:19:21 03/14/20 24 03/15/2024 COMP. METAB OLIC PANEL (14) sodium 139 mmol/ L 134-14 4 Not Available [facility] ([facility]) [address] [place], [address], 03/15/2024 10:19:21 03/14/20 24 03/15/2024 COMP. METAB OLIC PANEL (14) potassium 4.8 mmol/ L 3.5-5. 2 Not Available [facility] ([facility]) [address] [place], [address], 03/15/2024 10:19:21 03/14/20 24 03/15/2024 COMP. METAB OLIC PANEL (14) chloride 100 mmol/ L 96-106 Not Available [facility] ([facility]) [address], [place], [address], 03/15/2024 10:19:21 03/14/20 24 03/15/2024 COMP. METAB OLIC PANEL (14) carbon dioxide, total 24 mmol/ L 20-29 Not Available [facility] ([facility]) [address], [place], [address], 03/15/2024 10:19:21 03/14/20 24 03/15/2024 COMP. METAB OLIC PANEL (14) calcium 9.2 mg/dL 8.7-10 .2 Not Available [facility] ([facility]) [address], [place], [address], 03/15/2024 10:19:21 03/14/20 24 03/15/2024 COMP. METAB OLIC PANEL (14) protein, total 6.8 g/dL 6.0-8. 5 Not Available [facility] ([facility]) [address] [place], [address], 03/15/2024 10:19:21 03/14/20 24 03/15/2024 COMP. METAB OLIC PANEL (14) albumin 4.5 g/dL 3.8-4. 9 Not Available [facility] ([facility]) [address] [place], [address], 03/15/2024 10:19:21 03/14/20 24 03/15/2024 COMP. METAB OLIC PANEL (14) globulin, total 2.3 g/dL 1.5-4. 5 Not Available [facility] ([facility]) [address] [place], [address], 03/15/2024 10:19:21 03/14/20 24 03/15/2024 COMP. METAB OLIC PANEL (14) bilirubin, total 0.4 mg/dL 0.0-1. 2 Not Available [facility] ([facility]) [address], [place], [address], 03/15/2024 10:19:21 03/14/2003/15/2024 COMP. METAB OLIC PANEL (14) alkaline phosphatase 59 IU/L 44-121 Not Available [facility] ([facility]) [address], [place], [address], 03/15/2024 10:19:21 03/14/2003/15/2024 COMP. METAB OLIC PANEL (14) AST (SGOT) 35 IU/L 0-40 Not Available [facility] ([facility]) [address], [place], [address], 03/15/2024 10:19:21 03/14/2003/15/2024 COMP. METAB OLIC PANEL (14) ALT (SGPT) 46 IU/L 0-44 above high normal Not Available [facility] ([facility]) [address], [place], [address], 03/15/2024 10:19:21 03/14/2003/15/2024 URIC ACID uric acid 6.6 mg/dL 3.8-8. 4 Rochelle camejo t for gout patie nts: <6.0 Not Available [facility] ([facility]) [address], [place], [address], 03/15/2024 10:19:23 03/14/2003/15/2024 CBC WITH DIFFE RENTI AL/PL ATELE T WBC 6.8 x10e3 /uL 3.4-10 .8 Not Available [facility] ([facility]) [address], [place], [address], 03/15/2024 10:19:24 03/14/20 24 03/15/2024 CBC WITH DIFFE RENTI AL/PL ATELE T RBC 4.54 x10e6 /uL 4.14-5 .80 Not Available [facility] ([facility]) [address], [place], [address], 03/15/2024 10:19:24 03/14/2003/15/2024 CBC WITH DIFFE RENTI AL/PL ATELE T hemoglobin 14.9 g/dL 13.0-1 7.7 Not Available [facility] ([facility]) [address], [place], [address], 03/15/2024 10:19:24 03/14/2003/15/2024 CBC WITH DIFFE RENTI AL/PL ATELE T hematocrit 44.6 % 37.5-5 1.0 Not Available [facility] ([facility]) [address], [place], [address], 03/15/2024 10:19:24 03/14/2003/15/2024 CBC WITH DIFFE RENTI AL/PL ATELE T MCV 98 fL 79-97 above high normal Not Available [facility] ([facility]) [address], [place], [address], 03/15/2024 10:19:24 03/14/2003/15/2024 CBC WITH DIFFE RENTI AL/PL ATELE T MCH 32.8 pg 26.6-3 3.0 Not Available [facility] ([facility]) [address], [place], [address], 03/15/2024 10:19:24 03/14/2003/15/2024 CBC WITH DIFFE RENTI AL/PL ATELE T MCHC 33.4 g/dL 31.5-3 5.7 Not Available [facility] ([facility]) [address], [place], [address], 03/15/2024 10:19:24 03/14/20 24 03/15/2024 CBC WITH DIFFE RENTI AL/PL ATELE T RDW 12.8 % 11.6-1 5.4 Not Available [facility] ([facility]) [address], [place], [address], 03/15/2024 10:19:24 03/14/2003/15/2024 CBC WITH DIFFE RENTI AL/PL ATELE T platelets 340 x10e3 /uL 150-45 0 Not Available [facility] ([facility]) [address], [place], [address], 03/15/2024 10:19:24 03/14/2003/15/2024 CBC WITH DIFFE RENTI AL/PL ATELE T neutrophils 58 % notest ab. Not Available [facility] ([facility]) [address], [place], [address], 03/15/2024 10:19:24 03/14/20 24 03/15/2024 CBC WITH DIFFE RENTI AL/PL ATELE T lymphs 29 % notest ab. Not Available [facility] ([facility]) [address], [place], [address], 03/15/2024 10:19:24 03/14/20 24 03/15/2024 CBC WITH DIFFE RENTI AL/PL ATELE T monocytes 9 % notest ab. Not Available [facility] ([facility]) [address], [place], [address], 03/15/2024 10:19:24 03/14/20 24 03/15/2024 CBC WITH DIFFE RENTI AL/PL ATELE T eos 3 % notest ab. Not Available [facility] ([facility]) [address], [place], [address], 03/15/2024 10:19:24 03/14/20 24 03/15/2024 CBC WITH DIFFE RENTI AL/PL ATELE T basos 1 % notest ab. Not Available [facility] ([facility]) [address], [place], [address], 03/15/2024 10:19:24 03/14/20 24 03/15/2024 CBC WITH DIFFE RENTI AL/PL ATELE T neutrophils (absolute) 3.9 x10e3 /uL 1.4-7. 0 Not Available [facility] ([facility]) [address], [place], [address], 03/15/2024 10:19:24 03/14/20 24 03/15/2024 CBC WITH DIFFE RENTI AL/PL ATELE T lymphs (absolute) 2.0 x10e3 /uL 0.7-3. 1 Not Available [facility] ([facility]) [address], [place], [address], 03/15/2024 10:19:24 03/14/20 24 03/15/2024 CBC WITH DIFFE RENTI AL/PL ATELE T monocytes(ab solute) 0.6 x10e3 /uL 0.1-0. 9 Not Available [facility] ([facility]) [address], [place], [address], 03/15/2024 10:19:24 03/14/20 24 03/15/2024 CBC WITH DIFFE RENTI AL/PL ATELE T eos (absolute) 0.2 x10e3 /uL 0.0-0. 4 Not Available [facility] ([facility]) [address], [place], [address], 03/15/2024 10:19:24 03/14/2003/15/2024 CBC WITH DIFFE RENTI AL/PL ATELE T baso (absolute) 0.1 x10e3 /uL 0.0-0. 2 Not Available [facility] ([facility]) [address], [place], [address], 03/15/2024 10:19:24 03/14/20 24 03/15/2024 CBC WITH DIFFE RENTI AL/PL ATELE T immature granulocytes 0 % notest ab. Not Available [facility] ([facility]) [address], [place], [address], 03/15/2024 10:19:24 03/14/20 24 03/15/2024 CBC WITH DIFFE RENTI AL/PL ATELE T immature grans (abs) 0.0 x10e3 /uL 0.0-0. 1 Not Available [facility] ([facility]) [address], [place], [address], 03/15/2024 10:19:24 09/28/19 25 09/28/2024 LIPID PANEL cholesterol, total 196 mg/dL 100-19 9 Not Available [facility] ([facility]) [address] [place], [address], 09/28/2024 06:45:43 09/28/19 25 09/28/2024 LIPID PANEL triglyceride s 213 mg/dL 0-149 above high normal Not Available [facility] ([facility]) [address] [place], [address], 09/28/2024 06:45:43 09/28/19 25 09/28/2024 LIPID PANEL HDL cholesterol 55 mg/dL >39 Not Available [facility] ([facility]) [address] [place], [address], 09/28/2024 06:45:43 09/28/19 25 09/28/2024 LIPID PANEL VLDL cholesterol abdirashid 36 mg/dL 5-40 Not Available [facility] ([facility]) [address] [place], [address], 09/28/2024 06:45:43 09/28/19 25 09/28/2024 LIPID PANEL LDL chol calc ([facility]) 105 mg/dL 0-99 above high normal Not Available [facility] ([facility]) [address] [place], [address], 09/28/2024 06:45:43 09/28/19 25 09/28/2024 COMP. METAB OLIC PANEL (14) glucose 90 mg/dL 70-99 Not Available [facility] ([facility]) [address] [place], [address], 09/28/2024 06:45:44 09/28/19 25 09/28/2024 COMP. METAB OLIC PANEL (14) BUN 20 mg/dL 6-24 Not Available [facility] ([facility]) [address] [place], [address], 09/28/2024 06:45:44 09/28/19 25 09/28/2024 COMP. METAB OLIC PANEL (14) creatinine 0.84 mg/dL 0.76-1 .27 Not Available [facility] ([facility]) [address] [place], [address], 09/28/2024 06:45:44 09/28/19 25 09/28/2024 COMP. METAB OLIC PANEL (14) eGFR 106 mL/mi n/1.7 3 >59 Not Available [facility] ([facility]) [address] [place], [address], 09/28/2024 06:45:44 09/28/19 25 09/28/2024 COMP. METAB OLIC PANEL (14) BUN/creatini ne ratio 24 9-20 above high normal Not Available [facility] ([facility]) [address] [place], [address], 09/28/2024 06:45:44 09/28/19 25 09/28/2024 COMP. METAB OLIC PANEL (14) sodium 138 mmol/ L 134-14 4 Not Available [facility] ([facility]) [address] [place], [address], 09/28/2024 06:45:44 09/28/19 25 09/28/2024 COMP. METAB OLIC PANEL (14) potassium 4.1 mmol/ L 3.5-5. 2 Not Available [facility] ([facility]) [address], [place], [address], 09/28/2024 06:45:44 09/28/19 25 09/28/2024 COMP. METAB OLIC PANEL (14) chloride 98 mmol/ L 96-106 Not Available [facility] ([facility]) [address] [place], [address], 09/28/2024 06:45:44 09/28/19 25 09/28/2024 COMP. METAB OLIC PANEL (14) carbon dioxide, total 25 mmol/ L 20-29 Not Available [facility] ([facility]) [address] [place], [address], 09/28/2024 06:45:44 09/28/19 25 09/28/2024 COMP. METAB OLIC PANEL (14) calcium 10.3 mg/dL 8.7-10 .2 above high normal Not Available [facility] ([facility]) [address] [place], [address], 09/28/2024 06:45:44 09/28/19 25 09/28/2024 COMP. METAB OLIC PANEL (14) protein, total 7.1 g/dL 6.0-8. 5 Not Available [facility] ([facility]) [address] [place], [address], 09/28/2024 06:45:44 09/28/19 25 09/28/2024 COMP. METAB OLIC PANEL (14) albumin 4.5 g/dL 3.8-4. 9 Not Available [facility] ([facility]) [address] [place], [address], 09/28/2024 06:45:44 09/28/19 25 09/28/2024 COMP. METAB OLIC PANEL (14) globulin, total 2.6 g/dL 1.5-4. 5 Not Available [facility] ([facility]) [address] [place], [address], 09/28/2024 06:45:44 09/28/19 25 09/28/2024 COMP. METAB OLIC PANEL (14) bilirubin, total 0.6 mg/dL 0.0-1. 2 Not Available [facility] ([facility]) [address] [place], [address], 09/28/2024 06:45:44 09/28/19 25 09/28/2024 COMP. METAB OLIC PANEL (14) alkaline phosphatase 69 IU/L 44-121 Not Available [facility] ([facility]) [address] [place], [address], 09/28/2024 06:45:44 09/28/19 25 09/28/2024 COMP. METAB OLIC PANEL (14) AST (SGOT) 35 IU/L 0-40 Not Available [facility] ([facility]) [address] [place], [address], 09/28/2024 06:45:44 09/28/19 25 09/28/2024 COMP. METAB OLIC PANEL (14) ALT (SGPT) 35 IU/L 0-44 Not Available [facility] ([facility]) [address] [place], [address], 09/28/2024 06:45:44 09/28/19 25 09/28/2024 URIC ACID uric acid 5.0 mg/dL 3.8-8. 4 Rochelle camejo t for gout patie nts: <6.0 Not Available [facility] ([facility]) [address] [place], [address], 09/28/2024 06:45:45 09/28/19 25 09/27/2024 CBC WITH DIFFE RENTI AL/PL ATELE T WBC 7.9 x10e3 /uL 3.4-10 .8 Not Available [facility] ([facility]) [address] [place], [address], 09/28/2024 06:45:47 09/28/19 25 09/27/2024 CBC WITH DIFFE RENTI AL/PL ATELE T RBC 4.20 x10e6 /uL 4.14-5 .80 Not Available [facility] ([facility]) [address] [place], [address], 09/28/2024 06:45:47 09/28/19 25 09/27/2024 CBC WITH DIFFE RENTI AL/PL ATELE T hemoglobin 13.4 g/dL 13.0-1 7.7 Not Available [facility] ([facility]) [address] [place], [address], 09/28/2024 06:45:47 09/28/19 25 09/27/2024 CBC WITH DIFFE RENTI AL/PL ATELE T hematocrit 40.8 % 37.5-5 1.0 Not Available [facility] ([facility]) [address] [place], [address], 09/28/2024 06:45:47 09/28/19 25 09/27/2024 CBC WITH DIFFE RENTI AL/PL ATELE T MCV 97 fL 79-97 Not Available [facility] ([facility]) [address] [place], [address], 09/28/2024 06:45:47 09/28/19 25 09/27/2024 CBC WITH DIFFE RENTI AL/PL ATELE T MCH 31.9 pg 26.6-3 3.0 Not Available [facility] ([facility]) [address] [place], [address], 09/28/2024 06:45:47 09/28/19 25 09/27/2024 CBC WITH DIFFE RENTI AL/PL ATELE T MCHC 32.8 g/dL 31.5-3 5.7 Not Available [facility] ([facility]) [address] [place], [address], 09/28/2024 06:45:47 09/28/19 25 09/27/2024 CBC WITH DIFFE RENTI AL/PL ATELE T RDW 12.7 % 11.6-1 5.4 Not Available [facility] ([facility]) [address] [facility], [place], [address], 09/28/2024 06:45:47 09/28/19 25 09/27/2024 CBC WITH DIFFE RENTI AL/PL ATELE T platelets 401 x10e3 /uL 150-45 0 Not Available [facility] ([facility]) [address] [facility], [place], [address], 09/28/2024 06:45:47 09/28/19 25 09/27/2024 CBC WITH DIFFE RENTI AL/PL ATELE T neutrophils 65 % notest ab. Not Available [facility] ([facility]) [address] [facility], [place], [address], 09/28/2024 06:45:47 09/28/19 25 09/27/2024 CBC WITH DIFFE RENTI AL/PL ATELE T lymphs 23 % notest ab. Not Available [facility] ([facility]) [address] [facility], [place], [address], 09/28/2024 06:45:47 09/28/19 25 09/27/2024 CBC WITH DIFFE RENTI AL/PL ATELE T monocytes 8 % notest ab. Not Available [facility] ([facility]) [address] [facility], [place], [address], 09/28/2024 06:45:47 09/28/19 25 09/27/2024 CBC WITH DIFFE RENTI AL/PL ATELE T eos 3 % notest ab. Not Available [facility] ([facility]) [address] [facility], [place], [address], 09/28/2024 06:45:47 09/28/19 25 09/27/2024 CBC WITH DIFFE RENTI AL/PL ATELE T basos 1 % notest ab. Not Available [facility] ([facility]) [address] [place], [address], 09/28/2024 06:45:47 09/28/19 25 09/27/2024 CBC WITH DIFFE RENTI AL/PL ATELE T neutrophils (absolute) 5.2 x10e3 /uL 1.4-7. 0 Not Available [facility] ([facility]) [address] [place], [address], 09/28/2024 06:45:47 09/28/19 25 09/27/2024 CBC WITH DIFFE RENTI AL/PL ATELE T lymphs (absolute) 1.8 x10e3 /uL 0.7-3. 1 Not Available [facility] ([facility]) [address] [place], [address], 09/28/2024 06:45:47 09/28/19 25 09/27/2024 CBC WITH DIFFE RENTI AL/PL ATELE T monocytes(ab solute) 0.6 x10e3 /uL 0.1-0. 9 Not Available [facility] ([facility]) [address] [place], [address], 09/28/2024 06:45:47 09/28/19 25 09/27/2024 CBC WITH DIFFE RENTI AL/PL ATELE T eos (absolute) 0.2 x10e3 /uL 0.0-0. 4 Not Available [facility] ([facility]) [address] [place], [address], 09/28/2024 06:45:47 09/28/19 25 09/27/2024 CBC WITH DIFFE RENTI AL/PL ATELE T baso (absolute) 0.1 x10e3 /uL 0.0-0. 2 Not Available [facility] ([facility]) [address] [place], [address], 09/28/2024 06:45:47 09/28/19 25 09/27/2024 CBC WITH DIFFE RENTI AL/PL ATELE T immature granulocytes 0 % notest ab. Not Available [facility] ([facility]) [address] [facility], [place], [address], 09/28/2024 06:45:47 09/28/19 25 09/27/2024 CBC WITH DIFFE RENTI AL/PL ATELE T immature grans (abs) 0.0 x10e3 /uL 0.0-0. 1 Not Available [facility] ([facility]) [address] [place], [address], 09/28/2024 06:45:47 01/19/20 25 01/19/2025 LIPID PANEL cholesterol, total 182 mg/dL 100-19 9 Not Available [facility] ([facility]) [address] [place], [address], 01/19/2025 08:29:57 01/19/20 25 01/19/2025 LIPID PANEL triglyceride s 128 mg/dL 0-149 Not Available [facility] ([facility]) [address] [place], [address], 01/19/2025 08:29:57 01/19/20 25 01/19/2025 LIPID PANEL HDL cholesterol 57 mg/dL >39 Not Available [facility] ([facility]) [address] [place], [address], 01/19/2025 08:29:57 01/19/20 25 01/19/2025 LIPID PANEL VLDL cholesterol abdirashid 23 mg/dL 5-40 Not Available [facility] ([facility]) [address] [place], [address], 01/19/2025 08:29:57 01/19/20 25 01/19/2025 LIPID PANEL LDL chol calc ([facility]) 102 mg/dL 0-99 above high normal Not Available [facility] ([facility]) [address] [facility], [place], [address], 01/19/2025 08:29:57 01/19/2001/18/2025 COMP. METAB OLIC PANEL (14) interpretati on: COMMEN T GFR estim ate at the follo wing level for >or=3 month s is class ified as follo ws: GFR WITH KIDNE Y DAMAG E WITHO UT KIDNE Y DAMAG E >or=9 0 Stage 1 Idalia l 60-89 Stage 2 Decr eased GFR 30-59 Stage 3 Stage 3 15-29 Stage 4 Stage 4 <15 (or dialy sis) Stage 5 Stage 5 Estim ated GFR will over estim ate true GFR if serum creat inine is risin g as in acute renal failu re and will under estim ate true GFR if serum creat inine is decli miryam as in resol ving acute renal failu re. Addit ional infor maureen morin may be found at www.k doqi. org. Not Available [facility] ([facility]) [address] [facility], [place], [address], 01/19/2025 08:29:58 01/19/20 25 01/19/2025 COMP. METAB OLIC PANEL (14) glucose 92 mg/dL 70-99 Not Available [facility] ([facility]) [address] [place], [address], 01/19/2025 08:29:58 01/19/20 25 01/19/2025 COMP. METAB OLIC PANEL (14) BUN 16 mg/dL 6-24 Not Available [facility] ([facility]) [address] [place], [address], 01/19/2025 08:29:58 01/19/20 25 01/19/2025 COMP. METAB OLIC PANEL (14) creatinine 0.90 mg/dL 0.76-1 .27 Not Available [facility] ([facility]) [address] [place], [address], 01/19/2025 08:29:58 01/19/20 25 01/19/2025 COMP. METAB OLIC PANEL (14) eGFR 103 mL/mi n/1.7 3 >59 Not Available [facility] ([facility]) [address] [facility], [place], [address], 01/19/2025 08:29:58 01/19/20 25 01/19/2025 COMP. METAB OLIC PANEL (14) BUN/creatini ne ratio 18 9-20 Not Available [facility] ([facility]) [address] [facility], [place], [address], 01/19/2025 08:29:58 01/19/20 25 01/19/2025 COMP. METAB OLIC PANEL (14) sodium 142 mmol/ L 134-14 4 Not Available [facility] ([facility]) [address] [facility], [place], [address], 01/19/2025 08:29:58 01/19/20 25 01/19/2025 COMP. METAB OLIC PANEL (14) potassium 4.3 mmol/ L 3.5-5. 2 Not Available [facility] ([facility]) [address] [facility], [place], [address], 01/19/2025 08:29:58 01/19/20 25 01/19/2025 COMP. METAB OLIC PANEL (14) chloride 103 mmol/ L 96-106 Not Available [facility] ([facility]) [address] [place], [address], 01/19/2025 08:29:58 01/19/20 25 01/19/2025 COMP. METAB OLIC PANEL (14) carbon dioxide, total 25 mmol/ L 20-29 Not Available [facility] ([facility]) [address] [place], [address], 01/19/2025 08:29:58 01/19/20 25 01/19/2025 COMP. METAB OLIC PANEL (14) calcium 9.4 mg/dL 8.7-10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
--- OUTSIDE RECORDS SUMMARY | 2025-04-28 02:59 | XMS_ITS | Clinical Summary ---
[facility] Organization 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
--- OUTSIDE RECORDS SUMMARY | 2025-04-28 02:59 | XMS_ITS | Encounter Summary ---
Author Organization [facility] Address 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 Phone Unavailable Primary Care Provider Unavailabl e Encounter Details Date Type Department Care Team (Late st Contact Info) Description 01/01/2005 Outpatient Historical [facility] Internal Medicine [facility] and [address] [place] [address] [place] [address] [facility] [address] [place] [address] Social History Tobacco Use Types Packs/Day Years Used Date Smoking Tobacco: Never Assessed Sex and Gender Information Value Date Recorded Sex Assigned at Not on file 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
[2025-04-28 11:16] VITALS: BP 140/90; PULSE 83; RESP 16; TEMP 36.1; O2SAT 100; BMI 31.0
[2025-04-28] MEDS: LACTATED RINGERS 1,000 ML 150 ML IV CONT (11:29)
--- NOTE | 2025-04-28 11:46 | PM.HPGS ---
History of Present Illness History of Present Illness Consent: Risks, benefits, and alternatives have been discussed and questions answered. Patient agrees to proceed with procedure. Chief complaint: +Cologuard Narrative: Tyler Hannah is a 54 year old male here for first colonoscopy, + cologuard Review of Systems Review of Systems: All systems reviewed & are unremarkable except as noted in HPI and below PMFSH Past Medical History Medical History (Updated 04/28/25 @ 11:47 by Sergio Ott MD) Positive colorectal cancer screening using Cologuard test Surgical History Surgical History (Updated 10/12/24 @ 11:52 by Reena Canseco CMA) History of total left hip arthroplasty Social History Social History (Updated 10/12/24 @ 11:50 by Reena Canseco CMA) Smoking status: Never smoker Alcohol intake: current Alcohol use details: daily drinker tequila, vodka (liquour) Substance use: never Current Housing: Decline to Answer Concerned About Future Housing: Decline to Answer Difficulty Paying Gas/Electric Bills: Decline to Answer Difficulty Paying for Meds: Decline to Answer Currently Unemployed: Decline to Answer Education: Decline to Answer Difficulty w/ Childcare or Family Care: Decline to Answer Living arrangements: with family Spiritual care concerns: No Meds Home Medications and Allergies Home Medications ?Medication ?Instructions ?Recorded ?Confirmed ?Type Beet Root 1 cap PO DAILY 10/12/24 04/28/25 History Calcium Mg Zinc 1 tablet PO DAILY 10/12/24 04/28/25 History Melatonin 1 cap PO PRN PRN insomnia 10/12/24 04/12/25 History allopurinol 300 mg tablet 300 mg PO DAILY 10/12/24 04/28/25 History aspirin 81 mg tablet,delayed 81 mg PO DAILY 10/12/24 04/28/25 History release atorvastatin 20 mg tablet (Lipitor) 20 mg PO DAILY 10/12/24 04/28/25 History bupropion HCl 300 mg 24 hr tablet, 300 mg PO QAM 10/12/24 04/28/25 History extended release garlic 500 mg capsule 500 mg PO DAILY 10/12/24 04/28/25 History losartan 25 mg tablet 25 mg PO DAILY 10/12/24 04/12/25 History losartan 50 mg tablet 50 mg PO DAILY 10/12/24 04/12/25 History multivitamin (Daily Multi-Vitamin 1 tablet PO DAILY 10/12/24 04/28/25 History tablet) omega 8-rff-ayx-fish oil 60 mg-90 1 cap PO DAILY 10/12/24 04/28/25 History mg-500 mg capsule (Fish Oil) sildenafil 1 tablet PO PRN PRN erectile 10/12/24 04/12/25 History dysfunction valacyclovir 500 mg tablet 500 mg PO DAILY 10/12/24 04/12/25 History (Valtrex) vitamin B complex 1 tablet PO DAILY 10/12/24 04/28/25 History losartan 100 1 tablet PO DAILY 04/12/25 04/28/25 History mg-hydrochlorothiazide 25 mg tablet Allergies Allergy/AdvReac Type Severity Reaction Status Date / Time tramadol Allergy Severe Anaphylaxis Verified 04/12/25 13:34 Penicillins Allergy Unknown Unknown Verified 04/12/25 13:34 Vital Signs Vital Signs - 24 hr 04/28/25 11:16 Temperature 97 F L Pulse Rate 83 Respiratory Rate 16 Blood Pressure 140/90 Pulse Oximetry 100 Oxygen Delivery Room Air Exam Const: General: comfortable and no acute distress HENMT: Face/Nose/Sinus: Normal nares present Eyes: General: appearance normal, both eyes and all related structures Neck: Neck: no JVD Resp: Auscultation: clear to auscultation bilaterally Cardio: Rate: regular rate Rhythm: regular rhythm GI: Inspection: non-distended GI Palp: Yes Soft to palpation Skin: General skin exam: normal color Extrem: General: normal to inspection Psych: Mental Status: mental status grossly normal Assessment and Plan Assessment and plan (1) Positive colorectal cancer screening using Cologuard test: Code(s): R19.5 - Other fecal abnormalities Status: Acute Assessment and Plan: colonoscopy
--- NOTE | 2025-04-28 12:26 | WPDANESEPPF ---
Anes - Initial Pre Proc Eval Procedure: Operation Date: 04/28/25 12:30 Proposed Procedures p Screening Colonoscopy - Sergio Ott MD Date/Time: 04/28/25 12:26 Surgeon: Sergio Ott MD Pre Op Diagnosis: +Cologuard Patient Data Age: 54 Gender: M Height: 1.8 m Weight: 101 kg Last Vital Signs Temp 97 F L 04/28/25 11:16 Pulse 83 04/28/25 11:16 Resp 16 04/28/25 11:16 BP 140/90 04/28/25 11:16 Pulse Ox 100 04/28/25 11:16 O2 Del Method Room Air 04/28/25 11:16 Allergies Allergy/AdvReac Type Severity Reaction Status Date / Time tramadol Allergy Severe Anaphylaxis Verified 04/12/25 13:34 Penicillins Allergy Unknown Unknown Verified 04/12/25 13:34 Home Medications ?Medication ?Instructions ?Recorded ?Confirmed ?Type Beet Root 1 cap PO DAILY 10/12/24 04/28/25 History Calcium Mg Zinc 1 tablet PO DAILY 10/12/24 04/28/25 History Melatonin 1 cap PO PRN PRN insomnia 10/12/24 04/12/25 History allopurinol 300 mg tablet 300 mg PO DAILY 10/12/24 04/28/25 History aspirin 81 mg tablet,delayed 81 mg PO DAILY 10/12/24 04/28/25 History release atorvastatin 20 mg tablet (Lipitor) 20 mg PO DAILY 10/12/24 04/28/25 History bupropion HCl 300 mg 24 hr tablet, 300 mg PO QAM 10/12/24 04/28/25 History extended release garlic 500 mg capsule 500 mg PO DAILY 10/12/24 04/28/25 History losartan 25 mg tablet 25 mg PO DAILY 10/12/24 04/12/25 History losartan 50 mg tablet 50 mg PO DAILY 10/12/24 04/12/25 History multivitamin (Daily Multi-Vitamin 1 tablet PO DAILY 10/12/24 04/28/25 History tablet) omega 1-dqg-tin-fish oil 60 mg-90 1 cap PO DAILY 10/12/24 04/28/25 History mg-500 mg capsule (Fish Oil) sildenafil 1 tablet PO PRN PRN erectile 10/12/24 04/12/25 History dysfunction valacyclovir 500 mg tablet 500 mg PO DAILY 10/12/24 04/12/25 History (Valtrex) vitamin B complex 1 tablet PO DAILY 10/12/24 04/28/25 History losartan 100 1 tablet PO DAILY 04/12/25 04/28/25 History mg-hydrochlorothiazide 25 mg tablet Patient hx anesthesia problems: none Family hx anesthesia problems: none Results Review: All pre-operative results and documents have been reviewed as part of the pre-operative evaluation. [facility] Past Medical History Medical History Positive colorectal cancer screening using Cologuard test Surgical History Surgical History History of total left hip arthroplasty Social History Social History Smoking status: Never smoker Alcohol intake: current Alcohol use details: daily drinker tequila vodka (liquour) Substance use: never Current Housing: Decline to Answer Concerned About Future Housing: Decline to Answer Difficulty Paying Gas/Electric Bills: Decline to Answer Difficulty Paying for Meds: Decline to Answer Currently Unemployed: Decline to Answer Education: Decline to Answer Difficulty w/ Childcare or Family Care: Decline to Answer Living arrangements: with family Spiritual care concerns: No Anes - Eval Final PreProcedure Day of Procedure 04/28/25 12:26 Patient weight: obese Lungs: normal air movement Airway: Mallampati scale class II Neurological: alert and oriented Last oral intake: >/= 8 hours ASA classification: III Emergent: no Anesthetic plan: proceed Anesthesia type and monitoring: general GIVS and standard monitoring Results Review: All pre-operative results and documents have been reviewed as part of the pre-operative evaluation. 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 Informed Consent: The patient's anesthetic plan and its attendant risks and benefits were discussed with the patient/family/POA. Questions were solicited and answers provided to the satisfaction of the patient/family/POA.
--- NOTE | 2025-04-28 12:51 | S_PTH ---
PATIENT: Tyler Hannah LOC: [facility] Marie#:[id number] AGE/SX: 54/M ROOM: RE04/28/[address]: Sergio Ott MD : 1970 BED: DIS: 04/28/2025 SPEC #: [id number] RECD: 04/28/25 14:14 STATUS: ADOLFO REAlyssa #: [id number] CARL: 04/28/25 12:[address]: Sergio Ott DEPT: [facility] RECD BY: Belén Dahl ENTERED: 04/28/25 14:15 SP TYPE: Surgical OTHR DR: Stas YeungMD Tissues: A - Colon Polypectomy B - Colon Polypectomy Procedures: Hematoxylin and Eosin Stain Gross and Microscopic Level 4
[2025-04-28 12:53] VITALS: BP 109/70; PULSE 88; RESP 17; O2SAT 98
[2025-04-28 13:03] VITALS: BP 111/53; PULSE 83; RESP 14; O2SAT 100
[2025-04-28 13:13] VITALS: BP 110/72; PULSE 77; RESP 21; O2SAT 100
== END 2025-04-28 13:18 | disposition home or self-care (01) ==
PROVIDERS: PCP Internal Medicine; Referring Provider Internal Medicine; Visit Provider Internal Medicine Gastroenterology
PROC: 0DJD8ZZ Inspection of Lower Intestinal Tract, Via Natural or Artificial Opening Endoscopic (ICD-10-PCS; CPT 45378; principal; 2025-04-28 12:30)
DX: R19.5 Other fecal abnormalities (principal); D12.4 Benign neoplasm of descending colon; K63.5 Polyp of colon; K64.8 Other hemorrhoids; K57.30 Diverticulosis of large intestine without perforation or abscess without bleeding; I10 Essential (primary) hypertension; E78.5 Hyperlipidemia, unspecified; G47.33 Obstructive sleep apnea (adult) (pediatric); E66.9 Obesity, unspecified; Z68.31 Body mass index [BMI] 31.0-31.9, adult; Z79.82 Long term (current) use of aspirin; Z98.890 Other specified postprocedural states
CPT/HCPCS: 45380; 45385; 88305; J2003; J2704; J7120